=== PATIENT | male | born 1985 | race Caucasian/White ===

== ENCOUNTER 2016-12-15 22:49 | Observation (INO) ==
[2016-12-15] MEDS ORDERED: ALBUTEROL/IPRATROPIUM 3 ML NEB RESP TX STA (23:43)
[2016-12-15] MEDS ORDERED: methylPREDNISolone SOD SUC 125 MG/2 ML VIAL IV STA (23:44)
[2016-12-15] MEDS ORDERED: methylPREDNISolone SOD SUC 125 MG/2 ML VIAL ONE (23:48)
[2016-12-16] LABS: Basophils % 0.2 % (0.0-0.8); Eosinophils # 0.1 10*3/uL (0.0-0.87); Eosinophils % 1.1 % (0.00-10.9); Hemoglobin 16.5 GM/DL (14.0-18.0); Immature Granulocytes % 0.3 %; Immature Granulocytes Absolute 0.03 #; Lymphocytes # 1.9 10*3/uL (1.4-4.0); Lymphocytes % 20.3 % (21.2-54.2); Mean Corpuscular HGB Conc 35.9 GM/DL (32-36); Mean Corpuscular Hemoglobin 31 PG (27-34); Mean Corpuscular Volume 86.5 FL (87-102); Mean Platelet Volume 11.9 FL (9.6-12.0); Monocytes # 0.9 10*3/uL (0.11-0.8); Monocytes % 9.3 % (1.7-12.7); Neutrophils # 6.4 10*3/uL (1.4-7.4); Neutrophils % 68.8 % (38.7-73.9); Platelet Count 198 T/CUMM (130-400); Red Blood Count 5.32 MC/CUMM (3.8-5.5); Red Cell Distribution Width 11.4 % (9.3-17.3); White Blood Count 9.2 T/CUMM (4-12)
[2016-12-16 00:05] LABS: Calcium 9.2 MG/DL (8.5-10.1); Osmolality,Calculated 273.8 MOS/KG (273-304)
[2016-12-16] MEDS ORDERED: POTASSIUM CHLORIDE 20 MEQ TABLET PO ONE ×2 (00:19→14:26)
[2016-12-16] MEDS ORDERED: POTASSIUM CHLORIDE 20 MEQ TABLET PO STA (00:21)
--- NOTE | 2016-12-16 00:31 | Emergency Department Note ---
Arrival - Arrival Chief Complaint: Non-Specific Stated Complaint: N/V and SOB ED Nursing Triage Note: patient to ED via EMS with c/o N/V and SOB for 3 days. patient was seen in ED 2 days ago, treated, and dx with bronchitis. patient rec' d ABX shot and sent home with RX he did not get filled. patient has no pcp. Mode of Arrival: Stretcher Limitations: No Limitations Source: Patient Time Seen by Provider: 12/15/16 23:21 - History of Present Illness HPI Narrative: This is a patient I saw 2 days ago here in the ER with the complaint of productive cough, wheezing and fever for 1 day. Blood work and chest x-ray were negative. He was given an albuterol neb and improved. He was given IM Rocephin and prescriptions for Cipro, albuterol and Tessalon, none of which he filled. He returns tonight with the same symptoms. He states he has also been coughing so much that he gags and vomits. He has also had some tingling in his hands and muscle cramps. Allergies/Adverse Reactions: Allergies Allergy/AdvReac Type Severity Reaction Status Date / Time Amoxicillin Allergy HIVES Verified 12/15/16 22:56 Cyclobenzaprine Allergy HIVES Verified 12/15/16 22:56 [From Flexeril] Home Medications: Home Medications Medication Instructions Recorded Confirmed Type Albuterol Inhaler [Proventil 2 puff INH Q4H PRN #1 inhaler 12/13/16 Rx Inhaler] Benzonatate [Tessalon] 200 mg PO TID #20 capsule 12/13/16 Rx Ciprofloxacin Tab [Cipro Tab] 500 mg PO BID #14 tablet 12/13/16 Rx Review of System - Review of System 12 point system: reviewed and no additional remarkable complaints except as stated - Review of System Constitutional: Present: fever Respiratory: Present: cough, respiratory distress, wheezing Gastrointestinal: Present: abdominal pain, nausea, vomiting Medical,Surgical,& Family Hx - Medical History Respiratory: History of: Bronchitis - Surgical History Surgical History: noncontributory - Family History Family History: noncontributory - Social History Smoking Status: Smoker, status unknown Frequency of Alcohol Use: None Type of Drug Use: None Exam Physical Examination: GENERAL: Alert. No acute distress. HEENT: Normocephalic and atraumatic. There is no nasal drainage. No pharyngeal erythema or exudate. NECK: Normal inspection. Supple. No lymphadenopathy or meningismus. LUNGS: No respiratory distress. Have equal wheezing and rhonchi bilaterally. Good air movement. HEART: Regular rate and rhythm. ABDOMEN: Soft, nontender and nondistended with normoactive bowel sounds. BACK: Normal inspection. SKIN: Color normal. Warm and dry. EXTREMITIES: Nontender. Normal range of motion. No pedal edema. NEUROLOGICAL/PSYCHIATRIC: Alert and oriented -3 with normal mood and affect. Cranial nerves normal. No motor or sensory deficit. Vital Signs: Vital Signs Temperature 98.3 F 12/15/16 22:49 Pulse Rate 90 12/16/16 00:16 Respiratory Rate 21 12/16/16 00:16 Blood Pressure 158/93 12/15/16 23:52 O2 Sat by Pulse Oximetry 100 12/16/16 00:16 Course - Reevaluation(s) Reevaluation #1: The patient states he feels better after the neb, however, he still has heavy wheezing, coughing and some shortness of breath. Oxygen saturations are 100%. I discussed the patient with Dr. Madison who will see him and admit. Time: 01:09 Results - Labs CBC & BMP: 12/15/16 22:56 12/15/16 22:56 Disposition Clinical Impression: Bronchitis, Hypokalemia, Noncompliance Case discussed with: patient Disposition: Still a Patient Condition: Stable Time of Disposition: 01:11
--- NOTE | 2016-12-16 01:31 | Hospitalist History & Physical ---
Assessment and Plan (1) Asthma exacerbation Status: Acute Current Visit: Yes (2) Bronchitis Status: Acute Current Visit: Yes (3) Hypokalemia Status: Acute Current Visit: Yes (4) Noncompliance Status: Acute Assessment and plan: Our plan for this patient will be admission to the hospital I am going to put him on IV antibiotics steroids and schedule breathing treatments. Hopefully he will turn around fairly quickly. Patient has had a lot of esophageal irritation from throwing up. We will give him some IV fluids and some GI cocktail. Patient will be admitted under an observation status Current Visit: Yes History of Present Illness Chief complaint: Shortness of breath History of present illness: Mr. Garcia is a 31 year old male with past medical history of sports induced asthma came to the ER approximately 2 days ago and got diagnosed with bronchitis. He did not get any of his medications filled and symptoms got worse he returns to the ER tonight with significant wheezing nausea and vomiting. He reports she has been febrile. Patient was seen and evaluated by ER physician. I was consulted for admission. Home Medications Medication Instructions Recorded Confirmed Type Albuterol Inhaler [Proventil 2 puff INH Q4H PRN #1 inhaler 12/13/16 Rx Inhaler] Benzonatate [Tessalon] 200 mg PO TID #20 capsule 12/13/16 Rx Ciprofloxacin Tab [Cipro Tab] 500 mg PO BID #14 tablet 12/13/16 Rx Allergies Allergy/AdvReac Type Severity Reaction Status Date / Time Amoxicillin Allergy HIVES Verified 12/15/16 22:56 Cyclobenzaprine Allergy HIVES Verified 12/15/16 22:56 [From Flexeril] Medical,Surgical,& Family Hx - Medical History Respiratory: History of: Asthma, Bronchitis - Surgical History Surgical History: noncontributory (none) - Family History Family History: noncontributory (Adopted) - Social History Smoking Status: Former smoker Frequency of Alcohol Use: None Type of Drug Use: None 12 point system: reviewed and no additional remarkable complaints except as stated Exam - Constitutional Vitals: Period Temp Pulse Resp BP Sys/Chairez Pulse Ox Last 24 Hr 98.3 F-98.3 F 82-90 20-22 146-158/92-93 100-100 General appearance: normal weight - Head Head exam: Present: normal inspection - Eye Eye exam: Present: EOMI Pupils: Present: BIB - ENT ENT exam: Present: normal exam - Neck Neck exam: Present: normal inspection - Respiratory Respiratory exam: Present: wheezes - Cardiovascular Cardiovascular exam: Present: regular rate and rhythm - GI/Abdominal GI/Abdominal exam: Present: normal bowel sounds - Extremities Exam Extremities exam: Present: normal inspection - Back Exam Back exam: Present: normal inspection - Neurological Exam Neurological exam: Present: alert, oriented X3 - Psychiatric Psychiatric exam: Present: normal affect, normal mood - Skin Skin exam: Present: normal color Results - Labs CBC & BMP: 12/15/16 22:56 12/15/16 22:56
[2016-12-16] MEDS ORDERED: ACETAMINOPHEN 325 MG TABLET PO PRN (01:33)
[2016-12-16] MEDS ORDERED: ALBUTEROL/IPRATROPIUM 3 ML NEB RESP TX PRN (01:36)
[2016-12-16] MEDS ORDERED: ALUM/MAG/SIMETH/LIDO VISC 1:1 30 ML BOTTLE PO STA (01:37)
[2016-12-16] MEDS ORDERED: ALUM/MAG/SIMETH/LIDO VISC 1:1 30 ML BOTTLE PO ONE (01:59)
[2016-12-16] MEDS: SODIUM CHLOR 0.9% KCL 20 MEQ 20 MEQ/1,000 ML BAG IV SCH ×4 (02:00→13:04)
[2016-12-16] MEDS: LEVOFLOXACIN INJ 500 MG in PREMIX 1 EACH IV SCH (03:03)
[2016-12-16] MEDS: SODIUM CHLORIDE 0.9% 1,000 ML IV SCH ×2 (03:04→09:44)
[2016-12-16] MEDS: BUDESONIDE/FORMOTEROL 160-4.5 INHALER 6 GM INH SCH ×3 (04:47→21:17)
--- NOTE | 2016-12-16 06:03 | XRay Report ---
XR chest 1V portable Indication: Shortness of breath. Comparison: Chest x-ray 12/13/2016 Technique: Portable AP chest was performed. Findings: Heart size, mediastinal contour, and hilar structures demonstrate no significant abnormalities. The lung parenchyma is clear. Bones and soft tissues demonstrate no significant abnormalities. Impression: 1. No evidence of acute pathology. 12/16/2016 6:00 AM PROCEDURE INTERPRETED AT [facility] DEPARTMENT OF RADIOLOGY Final Report Signed by: Dr. Maury Lopez
[2016-12-16] MEDS: ALBUTEROL/IPRATROPIUM 3 ML NEB RESP TX SCH ×3 (07:08→19:53)
[2016-12-16] MEDS: methylPREDNISolone SOD SUC 125 MG/2 ML VIAL IV SCH ×3 (09:43→17:05)
[2016-12-16] MEDS: BENZONATATE 100 MG CAPSULE PO SCH ×3 (09:44→21:15)
[2016-12-16] MEDS: ONDANSETRON 4 MG/2 ML VIAL IV PRN ×2 (13:16→21:16)
--- NOTE | 2016-12-16 14:37 | Hospitalist Progress Note ---
Assessment and Plan (1) Bronchitis Status: Acute Assessment and plan: Continue antibiotics bronchodilators and corticosteroids Current Visit: Yes (2) Hypokalemia Status: Acute Assessment and plan: Potassium replacement ordered Current Visit: Yes (3) Asthma exacerbation Status: Acute Current Visit: Yes Hospitalist: Subjective Interval history: Patient seen and examined. No acute events overnight. Case discussed with nursing staff. Labs reviewed. Exam - Constitutional Vitals: Period Temp Pulse Resp BP Sys/Chairez Pulse Ox Last 24 Hr 97.1 F-98.6 F 77-89 18-20 107-145/65-83 97-100 Exam: Constitutional System: Mild distress. No tremulousness. Head: Normocephalic, atraumatic. Ears, Nose and Throat System: No pain or tenderness. No epistaxis or discharge Eyes System: Pupils equal, round, and reactive. Extraocular muscles intact. Neck: Supple, without adenopathy, No jugular venous distention. No thyromegaly, neck mass, or prior surgery apparent. Respiratory System: Chest bilateral wheezing and rhonchi to auscultation. Cardiovascular System: Heart with regular rate and rhythm. No murmur. GI System: Abdomen soft, nontender. Normo active bowel sounds present. Musculoskeletal System: limbs with no pedal edema. Full distal pulses. Neurological System: No discernable sensory deficit. No aphasia Psychiatric System: Conversation is rational Results - Labs CBC & BMP: 12/15/16 22:56 12/15/16 22:56 Lab Results: I have reviewed the past 24 hour labs - Diagnostic Findings Procedure: Chest x-ray: image reviewed by me, report reviewed by me
[2016-12-16] MEDS: MONTELUKAST 10 MG TABLET PO SCH (21:15)
[2016-12-17] MEDS: ALBUTEROL/IPRATROPIUM 3 ML NEB RESP TX SCH ×4 (00:25→19:26)
[2016-12-17] MEDS: methylPREDNISolone SOD SUC 125 MG/2 ML VIAL IV SCH ×2 (01:01→06:03)
[2016-12-17] MEDS: ONDANSETRON 4 MG/2 ML VIAL IV PRN ×3 (02:33→17:23)
[2016-12-17] MEDS: LEVOFLOXACIN INJ 500 MG in PREMIX 1 EACH IV SCH (02:34)
[2016-12-17] MEDS: SODIUM CHLORIDE 0.9% 1,000 ML IV SCH ×2 (06:03)
[2016-12-17 06:15] LABS: Magnesium 2.3 MG/DL (1.8-2.4); Osmolality,Calculated 277.5 MOS/KG (273-304); Potassium 4.3 MMOL/L (3.5-5.1)
[2016-12-17] MEDS: BENZONATATE 100 MG CAPSULE PO SCH ×3 (09:30→20:50)
[2016-12-17] MEDS: BUDESONIDE/FORMOTEROL 160-4.5 INHALER 6 GM INH SCH ×2 (09:31→20:54)
--- NOTE | 2016-12-17 11:09 | Hospitalist Progress Note ---
Assessment and Plan (1) Bronchitis Status: Acute Assessment and plan: Continue antibiotics bronchodilators and corticosteroids Current Visit: Yes (2) Hypokalemia Status: Resolved Assessment and plan: Potassium replaced Current Visit: Yes (3) Asthma exacerbation Status: Acute Current Visit: Yes Hospitalist: Subjective Interval history: Patient seen and examined. No acute events overnight. Case discussed with nursing staff. Labs reviewed. Exam - Constitutional Vitals: Period Temp Pulse Resp BP Sys/Chairez Pulse Ox Last 24 Hr 96.6 F-98.9 F 71-92 18-20 114-140/55-73 94-100 Exam: Constitutional System: Mild distress. No tremulousness. Head: Normocephalic, atraumatic. Ears, Nose and Throat System: No pain or tenderness. No epistaxis or discharge Eyes System: Pupils equal, round, and reactive. Extraocular muscles intact. Neck: Supple, without adenopathy, No jugular venous distention. No thyromegaly, neck mass, or prior surgery apparent. Respiratory System: Chest with bilateral wheezing and rhonchi to auscultation. Cardiovascular System: Heart with regular rate and rhythm. No murmur. GI System: Abdomen soft, nontender. Normo active bowel sounds present. Musculoskeletal System: limbs with no pedal edema. Full distal pulses. Neurological System: No discernable sensory deficit. No aphasia Psychiatric System: Conversation is rational Results - Labs CBC & BMP: 12/15/16 22:56 12/17/16 05:36 Lab Results: I have reviewed the past 24 hour labs
[2016-12-17] MEDS ORDERED: PROMETHAZINE INJ 12.5 MG in SODIUM CHLORIDE 0.9% 50 ML IV PRN (19:44)
[2016-12-17] MEDS: PROMETHAZINE INJ 25 MG in SODIUM CHLORIDE 0.9% 50 ML IV PRN (20:50)
[2016-12-17] MEDS: MONTELUKAST 10 MG TABLET PO SCH (20:50)
[2016-12-17] MEDS: methylPREDNISolone SOD SUC 40 MG/1 ML VIAL IV SCH (20:50)
[2016-12-18] MEDS: ALBUTEROL/IPRATROPIUM 3 ML NEB RESP TX SCH ×4 (00:37→19:12)
[2016-12-18] MEDS: PROMETHAZINE INJ 25 MG in SODIUM CHLORIDE 0.9% 50 ML IV PRN ×3 (02:46→23:48)
[2016-12-18] MEDS: methylPREDNISolone SOD SUC 40 MG/1 ML VIAL IV SCH ×2 (08:53→21:19)
[2016-12-18] MEDS: ONDANSETRON 4 MG/2 ML VIAL IV PRN (08:54)
[2016-12-18] MEDS: BENZONATATE 100 MG CAPSULE PO SCH ×3 (08:54→21:18)
[2016-12-18] MEDS: LEVOFLOXACIN 750 MG TABLET PO SCH (08:54)
[2016-12-18] MEDS: BUDESONIDE/FORMOTEROL 160-4.5 INHALER 6 GM INH SCH ×2 (08:55→21:19)
--- NOTE | 2016-12-18 11:38 | XRay Report ---
Exam: XR chest 2V Indication: Cough Comparison study: 12/15/2016 Findings: The heart, mediastinum and bony structures are stable from prior. There is no focal consolidation, pneumothorax or pleural effusion identified. Impression: No acute cardiopulmonary process. No significant change from prior. PROCEDURE INTERPRETED AT [facility] DEPARTMENT OF RADIOLOGY Final Report Signed by: Marlon Tadeo
[2016-12-18] MEDS: ACETYLCYSTEINE 20% 800 MG/4 ML VIAL RESP TX SCH ×2 (12:44→19:12)
--- NOTE | 2016-12-18 14:06 | Hospitalist Progress Note ---
Assessment and Plan (1) Bronchitis Status: Acute Assessment and plan: Continue antibiotics bronchodilators and corticosteroids Plan for discharge home in a.m. Current Visit: Yes (2) Hypokalemia Status: Resolved Assessment and plan: Potassium replaced Current Visit: Yes (3) Asthma exacerbation Status: Acute Current Visit: Yes Hospitalist: Subjective Interval history: Patient seen and examined. Patient with frequent coughing episodes that resulted in vomiting. He continues to have significant wheezing and rhonchi. Chest x-ray is unremarkable. Oxygen saturations dropped into the low 90s without O2. Case discussed with nursing staff. Labs reviewed. Exam - Constitutional Vitals: Period Temp Pulse Resp BP Sys/Chairez Pulse Ox Last 24 Hr 97.2 F-99.5 F 62-92 15-22 112-125/57-81 94-100 Exam: Constitutional System: Mild distress. No tremulousness. Head: Normocephalic, atraumatic. Ears, Nose and Throat System: No pain or tenderness. No epistaxis or discharge Eyes System: Pupils equal, round, and reactive. Extraocular muscles intact. Neck: Supple, without adenopathy, No jugular venous distention. No thyromegaly, neck mass, or prior surgery apparent. Respiratory System: Chest with bilateral wheezing and rhonchi to auscultation. Cardiovascular System: Heart with regular rate and rhythm. No murmur. GI System: Abdomen soft, nontender. Normo active bowel sounds present. Musculoskeletal System: limbs with no pedal edema. Full distal pulses. Neurological System: No discernable sensory deficit. No aphasia Psychiatric System: Conversation is rational Results - Labs CBC & BMP: 12/15/16 22:56 12/17/16 05:36 Lab Results: I have reviewed the past 24 hour labs - Diagnostic Findings Procedure: Chest x-ray: image reviewed by me, report reviewed by me
[2016-12-18] MEDS: MONTELUKAST 10 MG TABLET PO SCH (21:18)
[2016-12-19] MEDS: ALBUTEROL/IPRATROPIUM 3 ML NEB RESP TX SCH ×2 (00:32→06:54)
[2016-12-19] MEDS: ACETYLCYSTEINE 20% 800 MG/4 ML VIAL RESP TX SCH ×2 (01:00→06:54)
[2016-12-19] MEDS: guaiFENesin/CODEINE 5 ML LIQUID PO PRN ×2 (04:06→07:40)
[2016-12-19] MEDS: ONDANSETRON 4 MG/2 ML VIAL IV PRN (05:34)
--- NOTE | 2016-12-19 08:59 | Discharge Summary ---
Hospital Course - Hospital Course Hospital Course: Discharge diagnosis: 1. Asthma 2. Acute bronchitis The patient was admitted to the hospital for what appeared to be an episode of acute bronchitis. He had recently discontinued smoking. He was given steroids , bronchodilators, and supplemental oxygen. He had some episodes of oxygen desaturation. Eventually responded to the above-mentioned treatment, and is now ready to go home. He already has an inhaler at home, and does not need any prescriptions at this time. Medication reconciliation has been performed. Regular diet. Activity as tolerated. This note was completed using [email or web address] voice recognition software. There may be property coordinator errors as a result. Discharge Plan - Discharge Data Disposition: Disch To Home/Self Care Condition at Discharge: Stable Discharge Diet: advance to your usual diet Activity: resume usual activities as tolerated Hygiene: no restrictions Weight Bearing at Discharge: full weight bearing Driving: no restrictions - Discharge Medications New Budesonide/Formoterol 160-4.5 [Symbicort 160-4.5] 2 puff INH BID inhaler Continue Albuterol Inhaler [Proventil Inhaler] 2 puff INH Q4H PRN #1 inhaler PRN Reason: Shortness Of Breath/Wheezing Benzonatate [Tessalon] 200 mg PO TID #20 capsule Ciprofloxacin Tab [Cipro Tab] 500 mg PO BID #14 tablet - Follow Up or Referral - Forms/Instructions Exam - Constitutional Vitals: Period Temp Pulse Resp BP Sys/Chairez Pulse Ox Last 24 Hr 98.1 F-98.8 F 68-84 15-20 112-132/57-74 95-99 Vital signs are noted above He has a few expiratory wheezes, and some coarse rhonchi. Heart is regular with no murmur or gallop. He is awake and conversant. DS: Provider Date of admission: 12/16/16 01:13 Primary care physician: . No PCP Attending physician on admission: Shayy Narayan MD Discharging clinician: Pratik Gongora MD Expected date of discharge: 12/19/16
[2016-12-19] MEDS: BUDESONIDE/FORMOTEROL 160-4.5 INHALER 6 GM INH SCH (09:24)
[2016-12-19] MEDS: BENZONATATE 100 MG CAPSULE PO SCH (09:24)
[2016-12-19] MEDS: LEVOFLOXACIN 750 MG TABLET PO SCH (09:24)
[2016-12-19] MEDS: methylPREDNISolone SOD SUC 40 MG/1 ML VIAL IV SCH (09:25)
[2016-12-19] MEDS: PROMETHAZINE INJ 25 MG in SODIUM CHLORIDE 0.9% 50 ML IV PRN (11:35)
[2016-12-19 13:38] VITALS: BP 136/64
== END 2016-12-19 13:15 | disposition home or self-care (01) ==
LOC: EDUNIT# → EDBD → N.ED 22:49 → N.EDINP 22:49 → SUATTDRO 12-16 01:13 → N.2E 12-16 02:02
PROVIDERS: ADMIT Family Medicine; ATTEND Internal Medicine Geriatric Medicine